=== PATIENT | female | born 1965 | race Caucasian/White ===

== ENCOUNTER 2021-04-14 17:16 | Emergency (ER) | payer OTHER, SELFPAY ==
--- NOTE | ~2021-04-14 | XR_ITS ---
XR ankle LT min 3V 04/14/2021 17:42 INDICATION: Left ankle pain after trauma PROCEDURE: 4 views left ankle COMPARISON: No prior studies for comparison. FINDINGS: Fracture, dislocation or subluxation is not identified. There are degenerative calcaneal en thesophytes. Ankle mortise intact. There is a bone island in the calcaneus. Talar dome is normal. The soft tissues appear within normal limits. No foreign bodies are identified. IMPRESSION: 1: NO ACUTE BONE OR JOINT ABNORMALITY IDENTIFIED. Reviewed, dictated and finalized at location A.
[2021-04-14 17:25] VITALS: BP 138/86; PULSE 83; RESP 17; TEMP 36.4; O2SAT 99
--- NOTE | 2021-04-14 17:27 | ED.GENADULT ---
HPI - General Adult General Chief complaint: Extremity Injury, Lower Stated complaint: Lt ankle pain Time Seen by Provider: 04/14/21 17:27 Source: patient Mode of arrival: ambulatory Limitations: no limitations Related Data Home Medications Medication Instructions Recorded Confirmed estradiol 0.5 mg PO DAILY 04/14/21 04/14/21 Allergies Allergy/AdvReac Type Severity Reaction Status Date / Time Penicillins Allergy Severe Anaphylaxis Verified 04/14/21 17:37 Sulfa (Sulfonamide Allergy Intermediate Nausea and Verified 04/14/21 17:37 Antibiotics) Vomiting Review of Systems Review of Systems: CONSTITUTIONAL: Denies fever, chills, or sweats. EYES: Denies visual changes, redness, or discharge. ENT: Denies rhinorrhea, congestion, sore throat, or otalgia. CARDIOVASCULAR: Denies chest pain, palpitations, or edema. RESPIRATORY: Denies cough or dyspnea. GASTROINTESTINAL: Denies abdominal pain, nausea, vomiting, or diarrhea. GENITOURINARY: Denies dysuria or hematuria. SKIN: Denies rash or itching. MUSCULOSKELETAL: Denies back pain, joint pain, or myalgia. NEUROLOGIC: Denies headache, numbness, or weakness. PSYCHIATRIC: Denies anxiety or depression. [facility] Past Medical History Medical History (Updated 04/14/21 @ 18:23 by ANAND Preston) Heart murmur Surgical History Surgical History (Updated 04/14/21 @ 17:29 by ANAND Preston) Delivery by section H/O dilation and curettage 1997 H/O tubal ligation History of tonsillectomy Laparoscopic cyst removal Comments At the time of my signature I agree with nursing past medical history, surgical, social, and family history. There is no relevant family history pertinent to the presenting complaint. Exam Narrative: GENERAL: Well-appearing, well-nourished, and in no acute distress. HEAD: Normocephalic, atraumatic. EYES: PERRLA and EOMI. ENT: Nares clear, no rhinorrhea or epistaxis. Mucous membranes moist. NECK: Supple. No lymphadenopathy CHEST: Clear to auscultation. No respiratory distress. HEART: Regular rate and rhythm. No murmur heard. Normal peripheral pulses. ABDOMEN: Soft, nontender, nondistended, normal active bowel sounds. EXTREMITIES: Normal range of motion. No edema. SKIN: Warm, dry, no rash. NEURO: No focal deficits. Alert and oriented x3. Course Reevaluation(s) Reevaluation #1: [id number] [address] [phone] XRay ReportSigned Patient: Patti Stoner LDOB: 1965MR#: [id number]/Sex: 55 / FAcct:[id number]: EXPTROY ADM Date: 04/14/21Attending Dr: Ordering Physician: Nina Arthur APN Date of Service: 04/14/21 Procedure(s): XR ankle LT min 3V Accession Number(s): [id number] cc: UNKNOWN,DOCTOR; Nina Arthur APN~ XR ankle LT min 3V 04/14/2021 17:42 INDICATION: Left ankle pain after trauma PROCEDURE: 4 views left ankle COMPARISON: No prior studies for comparison. FINDINGS: Fracture, dislocation or subluxation is not identified. There are degenerative calcaneal enthesophytes. Ankle mortise intact. There is a bone island in the calcaneus. Talar dome is normal. The soft tissues appear within normal limits. No foreign bodies are identified. IMPRESSION: 1: NO ACUTE BONE OR JOINT ABNORMALITY IDENTIFIED. Reviewed, dictated and finalized at location A. Dictated By: Silverio Stringer MD 04/14/21 1749 Signed By: <Electronically signed by Silverio Stringer MD in OV> Date: 04/14/21 Time: 18:20 Reevaluation #2: Reevaluated patient after x-ray resulted. Notified patient that the x-ray is negative for any fracture but most likely has a sprain. We will go ahead and wrap her with an Dwaine wrap today and offered her crutches. Patient states she has a walker at home that she can use. Encourage patient to elevate it, ice to keep it wrapped and may take Tyl
== END 2021-04-14 18:27 | disposition home or self-care (01) ==
PROVIDERS: Emergency Provider Nurse Practitioner Family
DX: S93.402A Sprain of unspecified ligament of left ankle, initial encounter (principal); X50.9XXA Other and unspecified overexertion or strenuous movements or postures, initial encounter; R01.1 Cardiac murmur, unspecified
CPT/HCPCS: 73610; 99213; G0463

== ENCOUNTER 2023-11-14 08:40 | Emergency (ER) | payer OTHER, SELFPAY ==
[2023-11-14 09:07] VITALS: BP 113/73; PULSE 84; RESP 18; TEMP 36.7; O2SAT 98
[2023-11-14 09:10] VITALS: BP 113/73; PULSE 84; RESP 18; TEMP 36.7; O2SAT 98
--- NOTE | 2023-11-14 09:26 | ED.URI ---
HPI - URI/Sore Throat General Chief Complaint: Upper Respiratory Infection Stated Complaint: bilateral ear pain,sorethroat Source: patient Mode of arrival: ambulatory Limitations: no limitations History of Present Illness HPI Narrative: 58-year-old female presents to [facility] with complaints of bilateral ear pain and pressure, sore throat, dry cough, congestion and runny nose for the past 3 days. Patient denies shortness of breath, wheezing, nausea, vomiting, diarrhea or fevers. Patient reports that her grandchildren were recently ill. Patient has been taking [id number] Sudafed and Tylenol. patient is a nonsmoker. MD elicited complaint: sore throat, rhinorrhea, nasal congestion and other (Bilateral ear pain) Onset (ago): day(s) (3) Consistency: constant Able to tolerate fluids by mouth: Yes Exacerbating factors: swallowing Context: sick contacts (Grand children) Treatments prior to arrival: acetaminophen and cold medicine Related Data Home Medications Medication Instructions Recorded Confirmed diazepam 10 mg tablet mg 11/14/23 Allergies Allergy/AdvReac Type Severity Reaction Status Date / Time Penicillins Allergy Severe Anaphylaxis Verified 11/14/23 09:10 Sulfa (Sulfonamide AdvReac Intermediate Nausea and Verified 11/14/23 09:10 Antibiotics) Vomiting Review of Systems Constitutional: Constitutional: Denies chills, Denies fatigue, Denies fever(s) and Denies weakness ENT: Denies vertigo, Denies dizziness, Denies epistaxis, Reports nasal congestion and Reports sore throat Comments: bilateral ear pressure Cardiovascular: Cardiovascular: Denies chest pain, Denies rapid heart rate, Denies radiating jaw, neck or arm pain and Denies slow heart rate Respiratory: Respiratory: Reports cough, Denies dyspnea and Denies wheezing Gastrointestinal: Gastrointestinal: Denies diarrhea, Denies nausea and Denies vomiting Integumentary/Breasts: Skin/Breast: Denies rash Neurologic: Denies vertigo, Denies dizziness, Denies syncope and Denies headache(s) [facility] Past Medical History Medical History Heart murmur Surgical History Surgical History Delivery by section H/O dilation and curettage 1997 H/O tubal ligation History of tonsillectomy Laparoscopic cyst removal Comments At time of signature, I agree with nursing past medical, surgical, social and family history. There is no relevant family history pertinent to the presenting complaint. Exam Const: General: healthy appearing and no acute distress Nutritional Appearance: well nourished Orientation/consciousness: patient oriented x3 Limitations: no limitations HENMT: Head: normal to inspection Ears: external ears normal, EAC's normal and TM abnormal wth effusion serous bilateral; not erythematous Mouth: Yes Normal oral and palatal mucosa present and Yes moist mucous membranes Teeth and gingiva: dentition normal Throat: posterior oropharynx normal and uvula midline Other: Mild clear postnasal drainage noted Neck: Neck: normal visual inspection Resp: Effort & Inspection: normal respiratory effort and not labored Auscultation: clear to auscultation bilaterally, no crackles, no rales, no rhonchi and no wheezes Cardio: Rate: regular rate Rhythm: regular rhythm Heart sounds: no murmurs Skin: General skin exam: normal color Rashes: no rashes Neuro: General: patient oriented x3 Speech: normal speech Psych: Affect: normal affect Attitude: cooperative Course Course Level of Care: Express Care Visit Vital Signs Vital signs: Vital Signs Temperature 36.7 C 11/14/23 09:07 Pulse Rate 84 11/14/23 09:07 Respiratory Rate 18 11/14/23 09:07 Blood Pressure 113/73 11/14/23 09:07 Pulse Oximetry 98 11/14/23 09:07 Oxygen Delivery Room Air 11/14/23 09:07 Temperature 36.7 C 11/14/23 09:10 Pulse Ra
== END 2023-11-14 09:40 | disposition home or self-care (01) ==
PROVIDERS: Emergency Provider Nurse Practitioner Family
DX: B34.9 Viral infection, unspecified (principal); R01.1 Cardiac murmur, unspecified
CPT/HCPCS: 99213; G0463

== ENCOUNTER 2024-04-03 11:26 | Emergency (ER) | payer OTHER, SELFPAY ==
--- NOTE | 2024-04-03 11:30 | ED.URI ---
HPI - URI/Sore Throat General Chief Complaint: Upper Respiratory Infection Stated Complaint: SORE THROAT/FEVER Time Seen by Provider: 04/03/24 11:30 Source: patient Mode of arrival: ambulatory Limitations: no limitations History of Present Illness HPI Narrative: Patti is a 58-year-old female patient presenting to the clinic today with complaints of sore throat, cough, and fever x1 day. She reports highest fever was 101. No known sick contacts. Denies any chest pain or shortness of breath. MD elicited complaint: fever, cough and sore throat Related Data Home Medications Medication Instructions Recorded Confirmed diazepam 10 mg tablet mg 11/14/23 multivit with minerals-iron 18 tablet PO 04/03/24 mg-folic ac 400 mcg-vit K 25 mcg tablet (Adults Multivitamin) Allergies Allergy/AdvReac Type Severity Reaction Status Date / Time Penicillins Allergy Severe Anaphylaxis Verified 04/03/24 11:42 Sulfa (Sulfonamide AdvReac Intermediate Nausea and Verified 04/03/24 11:42 Antibiotics) Vomiting Review of Systems Review of Systems: Pertinent positives per HPI. Patient denies any fever, chills, rash, headache, visual changes, dizziness, shortness of breath, chest pain, palpitations, nausea, vomiting, diarrhea, constipation, abdominal pain, or any urinary issues. PMFSH Past Medical History Medical History Heart murmur Surgical History Surgical History Delivery by section H/O dilation and curettage 1997 H/O tubal ligation History of tonsillectomy Laparoscopic cyst removal Comments At the time of my signature, I reviewed and agree with the nursing past medical, surgical, social, and family history. There is no relevant family history pertinent to the patient complaint. Exam Narrative: General: Well-developed, well nourished, in no apparent distress Head: Normocephalic, atraumatic Eyes: Pupils equally round and reactive to light bilaterally, EOM intact, sclera and conjunctive clear, no discharge, lids normal Ears: TMs intact and clear, ear canals clear, no drainage, grossly hearing normal. Nose: Nares patent, no discharge, no inflammation, no sinus tenderness. Mouth: Oral pharynx mildly red without lesions or masses, good dentition, MMM. Neck: Supple, trachea midline, no enlargement of anterior or posterior cervical nodes, no thyroid masses or goiter palpable. Cardio: Regular rate and rhythm, s1 and s2 normal, no murmur appreciated. Resp: Clear to auscultation bilaterally, no rhonchi, rales, wheezing or rubs Course Course Emergency Course: Portions of this record may have been created with voice recognition software. Level of Care: Express Care Visit Vital Signs Vital signs: Vital Signs Temperature 37.2 C 04/03/24 11:34 Pulse Rate 107 H 04/03/24 11:34 Respiratory Rate 18 04/03/24 11:34 Blood Pressure 128/79 04/03/24 11:34 Pulse Oximetry 96 04/03/24 11:34 Oxygen Delivery Room Air 04/03/24 11:34 Temperature 37.2 C 04/03/24 11:34 Pulse Rate 107 H 04/03/24 11:34 Respiratory Rate 18 04/03/24 11:34 Blood Pressure 128/79 04/03/24 11:34 Pulse Oximetry 96 04/03/24 11:34 Oxygen Delivery Room Air 04/03/24 11:34 Vital signs reviewed MDM - URI/Sore Throat MDM Narrative Medical decision making narrative: At the time of visit patient is resting comfortably on the exam table. Patient appears to be nontoxic. Labs: COVID and strep test was obtained and negative in the clinic today. We will send strep for culture. Plan: I suspect patient has URI/pharyngitis/viral syndrome. Supportive measures were discussed with the patient and they voiced understanding discharge instructions and agrees to treatment plan. Return precautions reviewed Differential Diagnosis Differential diagnosis: Likely upper respiratory infection, otitis me
[2024-04-03 11:34] VITALS: BP 128/79; PULSE 107; RESP 18; TEMP 37.2; O2SAT 96
[2024-04-03 12:00] LABS: EDSTREPNEGPOS1 Negative
== END 2024-04-03 12:06 | disposition home or self-care (01) ==
PROVIDERS: Emergency Provider Nurse Practitioner Family
DX: B34.9 Viral infection, unspecified (principal); J06.9 Acute upper respiratory infection, unspecified; J02.9 Acute pharyngitis, unspecified; Z20.822 Contact with and (suspected) exposure to COVID-19; R01.1 Cardiac murmur, unspecified
CPT/HCPCS: 87081; 87426; 87880; 99213; G0463

== ENCOUNTER 2025-06-09 08:49 | Emergency (ER) | payer OTHER, SELFPAY ==
[2025-06-09 08:58] VITALS: BP 138/55; PULSE 115; RESP 20; TEMP 38.5; O2SAT 96
--- NOTE | 2025-06-09 09:00 | ED_ITS ---
HPI - URI/Sore Throat General Chief Complaint: Upper Respiratory Infection Stated Complaint: URI Source: patient Mode of arrival: ambulatory Limitations: no limitations History of Present Illness HPI Narrative: This 60-year-old female patient who presents emergency department with complaints of 10 days of sinus pressure, congestion, harsh cough, fever and chills. Patient has been taking Tylenol in saline nasal spray with no avail. She has not taken anything for her fever this morning. She refuses any antiemetics in The clinic. Patient reports she has been shortness of breath no nausea, vomiting, diarrhea headache dizziness. MD elicited complaint: fever, cough, rhinorrhea, nasal congestion and sinus pain Onset (ago): day(s) (10) Consistency: constant Severity: moderate Able to tolerate fluids by mouth: Yes Exacerbating factors: exertion Relieving factors: nothing Context: sick contacts and recent travel Associated symptoms: fever, chills, myalgias, headache, nasal congestion, sore throat and cough Treatments prior to arrival: other (saline spray) Related Data Home Medications ?Medication ?Instructions ?Recorded ?Confirmed ?Last Taken ?Type diazepam 10 mg tablet mg 11/14/23 Unknown History multivit with minerals-iron 18 tablet PO 04/03/24 Unk nown History mg-folic ac 400 mcg-vit K 25 mcg tablet (Adults Multivitamin) hydrochlorothiazide 12.5 mg capsule mg 06/09/25 Unkno wn History Allergies Allergy/AdvReac Type Severity Reaction Status Date / Time Penicillins Allergy Severe Anaphylaxis Verified 06/09/25 08:58 lisinopril Allergy Mild Swelling Verified 06/09/25 08:58 Sulfa (Sulfonamide AdvReac Intermediate Nausea and Verified 06/09/25 08:58 Antibiotics) Vomiting Review of Systems Review of Systems: All systems reviewed & are unremarkable except as noted in HPI and below PMFSH Past Medical History Medical History Heart murmur Surgical History Surgical History Delivery by section H/O dilation and curettage 1997 H/O tubal ligation History of tonsillectomy Laparoscopic cyst removal Exam Const: General: alert and ill appearing Nutritional Appearance: well nourished Orientation/consciousness: patient oriented x3 Limitations: no limitations HENMT: Head: normal to inspection Ears: external ears normal, TM's normal bilaterally and EAC's normal Face/Nose/Sinus: Nasal discharge present clear and mucoid Face and sinus: sinus tenderness frontal and maxillary Mouth: Yes Normal oral and palatal mucosa present Teeth and gingiva: dentition normal Throat: posterior oropharynx normal Eyes: Conjunctivae: conjunctivae normal Pupils: Equal, round and reactive pupils present EOM: EOMs intact bilaterally Neck: Neck: normal visual inspection and no lymphadenopathy Resp: Effort & Inspection: normal respiratory effort Auscultation: clear to auscultation bilaterally Other: Very harsh dry cough Cardio: Rate: tachycardic Rhythm: regular rhythm GI: GI Palp: Yes Soft to palpation Auscultation: normal bowel sounds and Hyperactive bowel sounds present Back/Spine/Pelvis: Back: no CVA tenderness Skin: General skin exam: normal color Rashes: no rashes Neuro: General: patient oriented x3 Speech: normal speech Gait exam (Neuro): Normal gait present Extrem: General: normal to inspection Psych: Mental Status: mental status grossly normal Course Course Emergency Course: 60-year-old female patient who presents emergency department with complaints of 10 days of sinus pressure, congestion, harsh cough, fever and chills. Patient has been taking Tylenol in saline nasal spray with no avail. She has not taken anything for her fever this morning. She refuses any antiemetics in The clinic. Patient reports she has been shortness of breath no nausea, vomiting, diarrhea headache dizziness. vital signs reviewed. discussed exam findings, discussed with the patient treatment options. Encouraged to continue symptomatic management including Tylenol and ibuprofen as needed for fever and discomfort. Continue with [id number] cough and cold medications. Continue with antibiotic and steroid as prescribed. Vicks Vaporub and vaporizer as needed. increase fluids, and rest Follow up with her primary care provider in the next 2-3 days for further evaluation and exam. Return to the emergency department or urgent care with any worrisome signs or symptoms. answered her questions to satisfaction she is agreeable to this plan. patient denies any further needs or concerns to be addressed prior to discharge. Level of Care: Express Care Visit Vital Signs Vital signs: Vital Signs Temperature 101.3 F H 06/09/25 08:58 Pulse Rate 115 H 06/09/25 08:58 Respiratory Rate 20 06/09/25 08:58 Blood Pressure 138/55 L 06/09/25 08:58 Pulse Oximetry 96 06/09/25 08:58 Oxygen Delivery Room Air 06/09/25 08:58 Temperature 101.3 F H 06/09/25 08:58 Pulse Rate 115 H 06/09/25 08:58 Respiratory Rate 20 06/09/25 08:58 Blood Pressure 138/55 L 06/09/25 08:58 Pulse Oximetry 96 06/09/25 08:58 Oxygen Delivery Room Air 06/09/25 08:58 MDM - URI/Sore Throat Differential Diagnosis Differential diagnosis: Likely upper respiratory infection Medical Records Attestation: I reviewed the patient's medical records. Discharge Plan Discharge Clinical Impression: Upper respiratory infection Patient Disposition: Home Condition: Stable Instructions: Antibiotic Form Additional Instructions: continue symptomatic management including Tylenol and ibuprofen as needed for fever and discomfort. Continue with [id number] cough and cold medications. Continue with antibiotic and steroid as prescribed. Vicks Vaporub and vaporizer as needed. increase fluids, and rest Follow up with her primary care provider in the next 2-3 days for further evaluation and exam. Return to the emergency department or urgent care with any worrisome signs or symptoms. Patient Language: Sammarinese Prescriptions: New azithromycin [Zithromax Z-Christo] 250 mg tablet 250 mg PO DIRECTED Qty: 6 0RF Rx Instructions: 250 mg orally; take two tablets today, then one tablet daily for 4 remaining days. prednisone 20 mg tablet 20 mg PO BID Qty: 10 0RF No Action diazepam 10 mg tablet loratadine [Claritin] 10 mg tablet 10 mg PO DAILY Qty: 30 0RF fluticasone propionate [Flonase Allergy Relief] 50 mcg/actuation spray,suspension 1 spray intranasal BID Qty: 16 0RF Rx Instructions: administer into each nostril Adults Multivitamin 18 mg iron-400 mcg-25 mcg Tablet PO hydrochlorothiazide 12.5 mg capsule Follow-up/Referrals: Jairo,Kasie Mercer MD [Primary Care Provider, [facility]] Time of Disposition: 09:13 Quality NIHSS Nursing Documentation ED NIHSS nursing documentation: reviewed/agree
--- OUTSIDE RECORDS SUMMARY | 2025-06-09 09:18 | XMS_ITS | Encounter Summary ---
Author Organization [facility] Address [address] [place] [address] Care Team Providers Care Browning Processor Name Role Phone Jodi Infante MD Unavailable [phone] Kasie Gill MD Primary Care Provider [phone] Kasie Gill MD Unavailable [phone] Encounter Details Date Type Department Care Team (Late st Contact Info) Description 05/29/2025 Results Follow-Up [facility] - Family Medicine [address] [place] [phone] Kasie Gill MD [address] [place] [phone] Social History Tobacco Use Types Packs/Day Years Used Date Smoking Tobacco: Former Cigarettes 1 15 1 09/21/1981 - 07/21/1997 Smokeless Tobacco: Never Alcohol Use Standard Drinks/Week Comments Yes 0 (1 standard drink = 0.6 oz pur e alcohol) occ AUDIT-C Answer Date Recorded Q1: How often do you have a drink containing alc ohol? Monthly or less 08/15/2024 Q2: How many drinks containi ng alcohol do you have on a typical day when you are drinking? 1 or 2 08/15/2024 Q3: How often do you have si x or more drinks on one occasion? Never 08/15/2024 Overall Financial Resource Strain (CARDIA) Answe r Date Recorded How hard is it for you to pa y for the very basics like food, housing, medical care, and heating? Not hard at all 08/15/2024 PHQ-2 Answer Date Recorded Patient Health Questionnaire-2 Score 0 02/15/2025 [facility] Occup[facility] - Occupational Stress Questionnaire Answer Date Recorded Do you feel stress - tense, restless, nervous, or anxious, or unable to sleep at night because your mind is troubled all the time - these days? Not at all 08/15/2024 Hunger Vital Sign Answer Date Recorded Within the past 12 months, y ou worried that your food would run out before you got the money to buy more. Never true 08/15/19 25 Within the past 12 months, t he food you bought just didn't last and you didn't have money to get more. Never true 08/15/2024 PRAPARE - Transportation Answer Date Re corded In the past 12 months, has l ack of transportation kept you from medical appointments or from getting medications? No 08/03 In the past 12 months, has l ack of transportation kept you from meetings, work, or from getting things needed for daily living? No 08/15/2024 Housing Stability Vital Sign Answer Casey e Recorded In the last 12 months, was t here a time when you were not able to pay the mortgage or rent on time? No 04/01/2023 Number of Places Lived in the Last Year Not on f ile 04/01/2023 In the last 12 months, was t here a time when you did not have a steady place to sleep or slept in a senior living (including now)? No 04/01/2023 Housing Stability Vital Sign Answer Casey e Recorded In the last 12 months, was t here a time when you were not able to pay the mortgage or rent on time? No 08/15/2024 In the past 12 months, how m any times have you moved where you were living? 0 08/15/2024 At any time in the past 12 m [facility], were you homeless or living in a senior living (including now)? 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 Answer Date of Assessment Author No 08/15/2024 11:14 AM Linda Cruz RN * Is person blind or have serious difficulty seeing? Answer Date of Assessment Author No 08/15/2024 11:14 AM Linda Cruz RN * Does person have serious difficulty walking/climbing stairs? Answer Date of Assessment Author No 08/15/2024 11:14 AM Linda Cruz RN * Does person have difficulty dressing/bathing? Answer Date of Assessment Author No 08/15/2024 11:14 AM Linda Cruz RN * Does person have difficulty doing errands alone? Answer Date of Assessment Author No 08/15/2024 11:14 AM Linda Cruz RN documented as of this encounter Mental Status * Does person have difficulty concentrating/remembering/making decisions? Answer Entry Date Author No 08/15/2024 11:14 AM Linda Cruz RN documented in this encounter Plan of Treatment Upcoming Encounters Date Type Department Care Team (Late st Contact Info) Description 08/22/2025 8:30 AM COSMETOLOGIST Office Visit [facility] - Family Medicine [address] [phone] Kasie Gill MD [address] [phone] 05/24/2026 10:00 AM CDT Ancillary Procedure [facility] [address] [phone] documented as of this encounter Visit Diagnoses Not on filedocumented in this encounter Care Teams Browning Processor Relationship Specialty Start Date End Date Kasie Gill MD [address] [phone] PCP - General Family Medicine 09/13/24 Kasie Gill MD [address] [phone] PCP - Attributed-[facility] 01/01/25 Jodi Infante MD [address] [phone] Obstetrics and Gynecology 09/24/16 documented as of this encounter
--- OUTSIDE RECORDS SUMMARY | 2025-06-09 09:19 | XMS_ITS | Encounter Summary ---
Author Organization [facility] Address [address] [place] [place] [address] Care Team Providers Care Mechanical Pencils Assembler Name Role Phone Jodi Infante MD Unavailable [phone] Antonia Villegas MD Primary Care Provider [phone] Antonia Villegas MD Unavailable Hanny Long [facility] Unavailable [phone] Charmaine Leung [facility] Unavailable [phone] Charo Hand Unavailable Pcp, [facility] Primary Care Provider Unavailable Hanny Long [facility] Unavailable [phone] Kasie Gill MD Primary Care Provider + [phone] Kasie Gill MD Unavailable [phone] Reason for Visit * Reason Onset Date Comments MEDICATION REFILL 02/21/2022 Encounter Details Date Type Department Care Team (Late st Contact Info) Description 02/21/2022 Refill [facility] [address] [place] [address] Jodi Infante MD [address] [place] [address] MEDICATION REFILL Social History Tobacco Use Types Packs/Day Years Used Date Smoking Tobacco: Former Cigarettes 1 15 1 09/21/1981 - 07/21/1997 Smokeless Tobacco: Never Alcohol Use Standard Drinks/Week Comments Yes 0 (1 standard drink = 0.6 oz pur e alcohol) occ PHQ-2 Answer Date Recorded PHQ2 TOTAL SCORE 0 01/28/2021 Comments No Sex and Gender Information Value Date Recorded Sex Assigned at Female 01/25/2021 8:07 AM CDT Legal Sex Female 10:35 AM SERVER ENGINEER Gender Identity Female 01/25/2021 8:07 AM CDT Sexual Orientation Straight 01/25/2021 8: 07 AM CDT 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 Answer Date of Assessment Author No 09/18/2016 10:07 AM Geraldine Trotter RN * Is person blind or have serious difficulty seeing? Answer Date of Assessment Author No 09/18/2016 10:07 AM Geraldine Trotter RN * Does person have serious difficulty walking/climbing stairs? Answer Date of Assessment Author No 09/18/2016 10:07 AM Geraldine Trotter RN * Does person have difficulty dressing/bathing? Answer Date of Assessment Author No 09/18/2016 10:07 AM Geraldine Trotter RN * Does person have difficulty doing errands alone? Answer Date of Assessment Author No 09/18/2016 10:07 AM Geraldine Trotter RN documented as of this encounter Mental Status * Does person have difficulty concentrating/remembering/making decisions? Answer Entry Date Author No 09/18/2016 10:07 AM Geraldine Trotter RN documented in this encounter Miscellaneous Notes * Telephone Encounter - Mitchell Hogue RN - 02/21/2022 4:33 PM CDT Refill Request Approved Patti Stoner BRENDA:12/15/2019 NOV due: 1 year JUN scheduled: 04/14/2022 LRF:12/24/2021 Qty Disp: 90 # of refills:0 Allergies: Allergies Allergen Reactions ??? Pcn [Penicillins] Anaphylaxis As child ??? Sulfa Drugs Nausea and/or Vomiting Other reaction(s): Nausea Pended Medication Order: Requested Prescriptions Signed Prescriptions Disp Refills ??? estradiol (ESTRACE) 0.5 MG tablet 180 tablet 0 Sig: Take 2 (two) tablets by mouth once daily Authorizing Provider: JODI INFANTE Ordering User: MITCHELL HOGUE documented in this encounter Plan of Treatment Upcoming Encounters Date Type Department Care Team (Late st Contact Info) Description 08/22/2025 8:30 AM SERVER ENGINEER Office Visit [facility] - Family Medicine [address] [phone] Kasie Gill MD [address] [phone] 05/24/2026 10:00 AM CDT Ancillary Procedure [facility] Breast [facility] [address] [phone] documented as of this encounter Visit Diagnoses Diagnosis Hormone replacement therapy documented in this encounter Care Teams Mechanical Pencils Assembler Relationship Specialty Start Date End Date Antonia Villegas MD [address] [facility] [address] [place] [address] PCP - General 02/14/19 06/01/24 Antonia Villegas MD [address] [facility] [address] [place] [address] PCP - Attributed-[facility] 02/01/20 12/01/23 Charmaine Leung, LENS AND FRAMES PRESCRIPTION CLERK-TUBE WRAPPER [address] [facility] [address] [place] [address] PCP - [facility] 12/02/23 12/31/24 Pcp, [facility] PCP - General 06/02/24 09/12/24 Kasie Gill MD [address] [address] PCP - General Family Medicine 09/13/24 Kasie Gill MD [address] [address] PCP - Attributed-[facility] 01/01/25 Jodi Infante MD [address] [address] Obstetrics and Gynecology 09/24/16 Hanny Long LMS[facility] Care Management 04/07/2304/04 Charo Hand [facility] [address] [place] [address] Care Coordination Specialist Care Management 03/17/24 03/17/24 Hanny Long LMSW Loop Sewer Care Management 08/17/24 08/17/24 documented as of this encounter
--- OUTSIDE RECORDS SUMMARY | 2025-06-09 09:19 | XMS_ITS | Clinical Summary ---
Author Organization [facility] Address [address] [place] [address] Care Team Providers Care Prehemmer Name Role Phone Jodi Infante MD Unavailable [phone] Kasie Gill MD Primary Care Provider [phone] Kasie Gill MD Unavailable [phone] Source Comments [facility] [employer],non-owned Affiliates and Associated Physician Practices is amultiple site organization consisting of ambulatory clinics and hospital sitesin [place], [place], [place] and [place]. This disclosure is being madepursuant to the Care Everywhere program and may not contain all information available regarding this patient. Last updated 18.[facility] [employer] Allergies Active Allergy Reactions Criticality Noted Date Comments Penicillins Anaphylaxis High 09/04/2016 As child Sulfa Drugs Nausea and/or Vomiting Low 06/19/2004 Other reaction(s): Nausea Medications * Be aware that medications may not be up to date on this document. Alwaysverify current medications with the patient. Multiple Vitamin 1 (one) tablet once daily 7 Active acetaminophen (Tylenol) 325 MG tablet Take 2 (two) tablets by mouth every 4 hours as needed Maximum allowable Acetaminophen amount = 4 Grams (4000 mg) / 24 hours. 3 Active diazePAM (Valium) 10 MG tablet Take 1 (one) tablet by mouth at bedtime 30 tablet 2 5 Active hydroCHLOROthia zide (Microzide) 12.5 MG capsuleIndicati ons:Hypertensio n, unspecified type Take 1 (one) capsule by mouth once daily 90 capsule 4 5 Active fish oil/omega-3 fatty acids (Promega;Cardi- Estill 3) 1000 MG capsule Take 1 (one) capsule by mouth 3 times daily with meals Active vitamin D3 (Cholecalcifero l) 25 MCG (1000 UNITS) tablet Take 5 (five) tablets by mouth every 2 days Active azelastine (Astelin) 0.1 % nasal sprayIndication s:Benign paroxysmal positional vertigo, unspecified laterality,Recu rrent subacute allergic otitis media of right ear [place] 1 (one) spray into each nostril 2 times daily 90 mL 4 5 Active ondansetron, disintegrating, (Zofran ODT) 4 MG tabletIndicatio ns:Benign paroxysmal positional vertigo, unspecified laterality Take 1 (one) tablet by mouth every 8 hours as needed for Nausea/Vomiting Allow tablet to dissolve on the tongue 12 tablet 5 Active Active Problems Problem Noted Date Diagnosed Date Diverticulitis 08/15/2024 Sepsis, due to unspecified o rganism, unspecified whether acute organ dysfunction present 08/15/2024 Chest pain, unspecified type 08/15/2024 Prediabetes 08/15/2024 Chronic back pain 08/15/2024 Resolved Problems Problem Noted Date Diagnosed Date Resolved Date Abdominal pain, right lower quadrant 04/01/2023 04/03/2023 Well woman exam with routine gynecological exam 04/14/2022 07/13/2023 Assessment & Plan (04/14/2022 2:44 PM CDT): Pap smear no longer indicated given benign hysterectomy. Mammogram due at the end of the month Hormone replacement therapy refilled for the next year. She has been working on tapering down slowly and is currently only using 0.5 mg daily. Hormone replacement therapy 01/28/2021 07/13/2023 Physical exam, annual 09/24/20162017 Lipid screening 09/24/2016 01/28/2021 Overview (10/08/2018): 07/2016: 1.2 % 10 yr ascvd risk 09/2017: 1.2 % 10 yr ascvd risk 10/2018: 1.7 % 10 yr ascvd risk Intramural leiomyoma of uterus 08/13/2016 07/13/2023 Encounters Date Type Department Care Team Description 05/29/2025 Results Follow-Up [facility] - Family Medicine [address], [address] [place] [address] Kasie Gill MD 05/24/2025 11:30 AM CDT Ancillary Procedure [facility] [address] [place] [address] Kasie Gill MD Encounter for screening mammogram for malignant neoplasm of breast from Last 3 Months Immunizations Immunization Administration Dates Next Due INFLUENZA VACCINE, TRIV. (AF LURIA, FLUZONE TRIVALENT; 6MO+) (IIV3) 05/09/2013,05/03/2011,05/03/2010 COVID PFIZER BIVALENT 12Y+ 30mcg/0.3ML 06/25/2022 Comirnaty Covd-19 Mrna Vacci ne (Nucleoside Modified) 05/19/2023 Covid Pfizer primary monoval ent 12+ yr 0.3mL Purple cap 05/23/2024,05/09/2021,09/10/2020,2020 INFLUENZA VACCINE 06/09/2024, 9,04/16/2018,2016,05/03/2016,05/09/2013,05/03/2011,1 INFLUENZA VACCINE, CELL CULT URE, QUADR. (FLUCELVAX QUADRIVALENT; 6MO+) (CCIIV4) 05/19/2023,06/02/2022,05/27/2020,2019 TDAP (7yrs+) 06/25/2022,12/14/2008,11/02/2007 Zoster Hzv Vacc Recombinant Inj Im 06/20/2024, Family History Medical History Relation Name Comments Cancer - Skin, Melanoma Brother Chidi Zamudio Sarah CVA Father Gilles Smith Jr 12/2017 Diabetes Father Gilles Smith Jr Heart Disease Father Gilles Smith Jr CAD s/ p CABG Hypercholesterolemia Father Gliles Smith Jr Hypertension Father Gilles Smith Jr Dementia Maternal Grandmother Samanta Frost Cancer - Breast Other Mima Block Cancer - Breast Paternal Aunt Carolin Funk Chronic Lung Disease Paternal Grandfather Gilles Palomino Ta lbert SR Diabetes Paternal Grandfather Gilles Smith SR Heart Disease Paternal Grandfather Gilles Smith S R Hypercholesterolemia Paternal Grandfather Gilles Palomino Ta lbert SR Hypertension Paternal Grandfather Gilles Smith SR Cancer - Ovarian Paternal Grandmother Sirena Taylor Talber t young Cancer - Uterine Paternal Grandmother Sirena Dearborn Talber t young Schizophrenia Sister Josephine Alanis Sarah Relation Name Status Comments Brother Chidi Smith Alive Father Gilles Smith Jr Alive Maternal Grandmother Samanta Frsot Alive Mother Alive Other Mima Block Alive Paternal Aunt Carolin Funk Paternal Grandfather Gilles Smith SR (Ag e 67) Paternal Grandmother Sirena Smith Sister Josephine Smith Alive Social History Tobacco Use Types Packs/Day Years Used Date Smoking Tobacco: Former Cigarettes 1 15 1 09/21/1981 - 07/21/1997 Smokeless Tobacco: Never Tobacco Cessation:Counseling Given: Not Answered Alcohol Use Standard Drinks/Week Comments Yes 0 [...] Recorded Patient Health Questionnaire-2 Score 0 02/15/2025 [facility] [place] of Occupat ional Health - Occupational Stress [...] place to sleep or slept in a jail (including now)? No 04/01/2023 Housing Stability Vital Sign Answer Casey e Recorded In the last 12 months, was t here a time when you were not able to pay the mortgage or rent on time? No 08/15/2024 In the past 12 months, how m any times have you moved where you were living? 0 08/15/2024 At any time in the past 12 m [facility], were you homeless or living in a jail (including now)? 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 Not on file Not on f ile Last Filed Vital Signs Vital Sign Reading Time Taken Comments Blood Pressure 124/80 02/15/2025 8:32 AM CDT Pulse 74 02/15/2025 8:32 AM CDT Temperature 36.3 C (97.3 F) 10/20/2024 8:19 AM CDT Respiratory Rate 18 09/13/2024 9:32 AM MEDICAL ATTENDANT Oxygen Saturation 97% 02/15/2025 8:32 AM CDT Inhaled Oxygen Concentration - - Weight 89.3 kg (196 lb 12.8 oz) 05/24/2025 9:52 AM CDT Height 160 cm (5' 3) 05/24/2025 9:52 AM CDT Body Mass Index 34.86 05/24/2025 9:52 AM CDT Plan of Treatment Upcoming Encounters Date Type Department Care Team (Late st Contact Info) Description 08/22/2025 8:30 AM MEDICAL ATTENDANT Office Visit [facility] - Family Medicine [address] [address] Kasie Gill MD [address] [address] 05/24/2026 10:00 AM CDT Ancillary Procedure [facility] [address] [address] Health Maintenance Due Date Last Done Comments COLON MONITORING 1965 COLONOSCOPY - COLON CA SCREENING 1965 CT COLONOGRAPHY - COLON CA SCREENING 1965 FLEX SIG - COLON CA SCREENING 1965 PNEUMOCOCCAL VACCINE 50+ (1 of 1 - PCV) 2015 FIT - COLON CA SCREENING 11/25/2019 11/24/2018, 09/04 COVID-19 VACCINE ( season) 2025 05/23/2024, 05/19/2023, 06/25/2022, Additional history exists INFLUENZA VACCINE (#1) 2025 , 05/19/2023, 06/02/2022, Additional history exists LIPID TESTING 08/16/2025 08/16/2024, 08/03, 05/15/2022, Additional history exists HIV SCREENING 09/13/2025 Postponed from 1980 (Patient Directed) COLOGUARD (AGES 45-75) - COLON CA SCREENING 03/27/2027 03/27/2024, 03/27/2024, 03/06/2021, Additional history exists Colorectal Cancer Screening 03/27/2027 MAMMOGRAM 05/24/2027 05/24/2025, 03/2024, 05/14/2022, Additional history exists SCREENING FOR DIABETES 02/16/2028 , 08/16/2024, 08/15/2024, Additional history exists DTAP/TDAP/TD VACCINES (4 - Td or Tdap) 06/25/2032 06/25/2022, 12/14/2008, 11/02/2007 Respiratory Syncytial Virus (RSV) Vaccine Pt: or over 60 yrs (1 - 1-dose 75+ series) 2040 HEPATITIS C SCREENING Completed 10/06/2018 ZOSTER VACCINE Completed 06/20/2024, 02/15/2024 DEPRESSION SCREENING Completed 08/14/2024, 11/09/2023, 04/22/2023, Additional history exists HEPATITIS B VACCINE Discontinued HIB VACCINE Aged Out No longer eligi ble based on patient's age to complete this topic HPV VACCINE Aged Out No longer eligi ble based on patient's age to complete this topic MENINGOCOCCAL (Group B) VACCINE SHARED DECISION-MAKING Aged Out No longer eligible based on patient's age to complete this topic MENINGOCOCCAL GROUPS A/C/Y/W VACCINE Aged Out No longer eligible based on patient's age to complete this topic Procedures Procedure Name Priority Date/Time Associated Diagnosis Comments MAMMO BILAT SCREENING W BOWEN Routine 05/24/2025 10:00 AM CDT Encounter for screening mammogram for malignant neoplasm of breast BASIC METABOLIC PANEL (CALCIUM TOTAL) Routine 02/15/2025 10:01 AM CDT Primary hypertension LIPID PROFILE AM Draw 08/16/2024 6:27 AM MEDICAL ATTENDANT COLOGUARD TEST Routine 03/27/2024 7:30 PM CDT Screening for colorectal cancer OCCULT BLOOD FECES FIT IMMUNOASSAY 11/24/2018 12:00 AM CDT HEPATITIS C ANTIBODY Routine 10/06/2018 3:32 PM MEDICAL ATTENDANT Need for hepatitis C screening test from Last 3 Months or Most Recently Relevant to Health Maintenance Results * Mammo Bilat Screening W Bowen (05/24/2025 10:00 AM CDT) Anatomical Region Laterality Modality Breast Bilateral Mammography 05/27/2025 10:4 5 AM CDT Impressions 05/27/2025 10:45 AM CDT IMPRESSION: There is no mammographic evidence of malignancy. RECOMMENDATION: Annual screening mammography is recommended. OVERALL ASSESSMENT: BI-RADS Category 1. Negative. > Interpreting Provider: Yaya Draper MD on 05/27/2025 10:45 AM Narrative 05/27/2025 10:45 AM CDT EXAMINATION: DIGITAL MAMMO BILAT SCREENING W BOWEN DATE: 05/24/2025 HISTORY: Screening. CALCULATED LIFETIME RISK OF BREAST CANCER: 9% COMPARISON: Prior breast imaging dating back to 2016 TECHNIQUE: Bilateral synthetic 2-D (C-view) digital mammogram images and bilateral digital breast tomosynthesis were obtained in the craniocaudal and mediolateral oblique projections. Computer-aided detection (CAD) was utilized. BREAST PARENCHYMAL DENSITY: Density Category B: There are scattered areas of fibroglandular density FINDINGS: There are no suspicious masses, suspicious calcifications, or areas of unexplained architectural distortion. us Kasie Gill MD MAMMO ORDERABLES Final Res ult * (ABNORMAL) BASIC METABOLIC PANEL (CALCIUM TOTAL) (02/15/2025 10:01 AM CDT) Glucose 93 65 - 99 mg/dL [facility] Comment: Fasting reference interval BUN 21 7 - 25 mg/dL [facility] Creatinine 0.65 0.50 - 1.03 mg/dL [facility] eGFR by Cystatin C 101 > OR = 60 mL/min/1. 73m2 [facility] BUN/Creatinine Ratio SEE NOTE: 6 - 22 (calc) [facility] Comment: Not Reported: BUN and Creatinine are within reference range. Sodium 133(L) 135 - 146 mmol/L [facility] Potassium 4.4 3.5 - 5.3 mmol/L [facility] Chloride 99 98 - 110 mmol/L [facility] CO2 25 20 - 32 mmol/L [facility] Calcium 9.2 8.6 - 10.4 mg/dL [facility] Comment: Test Performed at: [facility] [place] [id number] [facility] [place] [phone] JENNIFER COLON MD Blood BLOOD SPECIMEN / Unknown 02/15/2025 10:01 AM CDT 02/15/2025 10:02 AM CDT Kasie Gill MD LAB - CHEMISTRY ORDERABLES Final Result Performing Organization Address City/[facility]/ZIP Co de Phone Number [facility] [address] [place] [address] * LIPID PROFILE (08/16/2024 6:27 AM MEDICAL ATTENDANT) Cholesterol 175 <200 mg/dL 08/16/2024 7:15 AM MEDICAL ATTENDANT [facility] Triglycerides 107 <150 mg/dL 08/16/2024 7:15 AM MEDICAL ATTENDANT [facility] HDL Cholesterol 46 >40 mg/dL 5 7:15 AM MEDICAL ATTENDANT [facility] LDL Calculated 108 <130 mg/dL 08/16/2024 7:15 AM [facility] VLDL Calculated 21 <=30 mg/dL 5 7:15 AM [facility] Chol HDL Ratio 3.8 <4.5 08/16/2024 7:15 AM MEDICAL ATTENDANT [facility] LDL/HDL Ratio 2.3 <5.0 08/16/2024 7:15 AM [facility] Blood BLOOD SPECIMEN / Unknown Lab Venipuncture / Unknown 08/16/2024 6:27 AM MEDICAL ATTENDANT 08/16/2024 6:38 AM MEDICAL ATTENDANT us Vinh Peña MD LAB - CHEMISTRY ORDERABLES Final Result [facility] [address] [place] [address] * COLOGUARD TEST (03/27/2024 7:30 PM CDT) Cologuard Negative Negative [facility] Comment: NEGATIVE TEST RESULT. A negative Cologuard result indicates a low likelihood that a colorectal cancer (CRC) or advanced adenoma (adenomatous polyps with more advanced pre-malignant features) is present. The chance that a person with a negative Cologuard test has a colorectal cancer is less than 1 in 1500 (negative predictive value >99.9%) or has an advanced adenoma is less than 5.3% (negative predictive value 94.7%). These data are based on a prospective cross-sectional study of 10,000 individuals at average risk for colorectal cancer who were screened with both Cologuard and colonoscopy. (Millie Adari al, N Engl J Med 2014;370(14):9284-1564) The normal value (reference range) for this assay is negative. COLOGUARD RE-SCREENING RECOMMENDATION: Periodic colorectal cancer screening is an important part of preventive healthcare for asymptomatic individuals at average risk for colorectal cancer. Following a negative Cologuard result, the [place] [employer] Society and U.S. Multi-Society Task Force screening guidelines recommend a Cologuard re-screening interval of 3 years. References: [place] [employer] Guideline for Colorectal Cancer Screening: https://www.cancer.org/cancer/wbkcl-cbqshn-zidhon/gdsavluow-pgqettskz-whzajfq/ acs-recommendations.html.; Cecilio DK, Sesar MICHELE, Valentina GonsalvesK, Colorectal Cancer Screening: Recommendations for Physicians and Patients from the U.S. Multi-Society Task Force on Colorectal Cancer Screening , Am J Gastroenterology 2017; 112:0117-3890. TEST DESCRIPTION: Composite algorithmic analysis of stool DNA-biomarkers with hemoglobin immunoassay. Quantitative values of individual biomarkers are not reportable and are not associated with individual biomarker result reference ranges. Cologuard is intended for colorectal cancer screening of adults of either sex, 45 years or older, who are at average-risk for colorectal cancer (CRC). Cologuard has been approved for use by the U.S. FDA. The performance of Cologuard was established in a cross sectional study of average-risk adults aged 50-84. Cologuard performance in patients ages 45 to 49 years was estimated by sub-group analysis of near-age groups. Colonoscopies performed for a positive result may find as the most clinically significant lesion: colorectal cancer [4.0%', advanced adenoma (including sessile serrated polyps greater than or equal to 1cm diameter) [20%' or non- advanced adenoma [31%'; or no colorectal neoplasia [45%'. These estimates are derived from a prospective cross-sectional screening study of 10,000 individuals at average risk for colorectal cancer who were screened with both Cologuard and colonoscopy. (Millie Adair al, N Engl J Med 2014;370(14):3155-4563.) Cologuard may produce a false negative or false positive result (no colorectal cancer or precancerous polyp present at colonoscopy follow up). A negative Cologuard test result does not guarantee the absence of CRC or advanced adenoma (pre-cancer). The current Cologuard screening interval is every 3 years. ([place] [employer] Society and U.S. Multi-Society Task Force). Cologuard performance data in a 10,000 patient pivotal study using colonoscopy as the reference method can be accessed at the following location: www.[employer]/results. Additional description of the Cologuard test process, warnings and precautions can be found at www.[employer].Blued. Stool STOOL SPECIMEN / Unknown 03/27/2024 7:30 PM CDT 03/29/2024 10:48 AM CDT Antonia Villegas MD LAB - CHEMISTRY ORDERABLES Final Result [facility] [address] [place] [address] [facility] [address] [place] [address]. [place] [address] * OCCULT BLOOD FECES 1-3 IMMUNOASSAY (11/24/2018 12:00 AM CDT) Occult Blood Immunoassay Negative Negative [facility] INSURANCE BILL 11/24/2018 11/24/2018 Narrative Resulting Agency Comment Lab Testing performed at: [facility] [address] [facility] [phone] Dipti Burger MD LAB - BODY FLUID ORDERABLES Final Result Performing Organization Address City/[facility]/ZIP Co de Phone Number [facility] INSURANCE BILL [address] [place] [address] * HEPATITIS C ANTIBODY (10/06/2018 3:32 PM MEDICAL ATTENDANT) Hepatitis C Antibody Non Reactive Non Reactive [facility] INSURANCE BILL Comment: Non Reactive - Antibodies to Hepatitis C virus (HCV) were no t detected, result does not exclude early acute HCV infection. Blood BLOOD SPECIMEN / Unknown 10/06/2018 3:32 PM MEDICAL ATTENDANT 10/06/2018 Narrative Resulting Agency Comment [facility] [address] [facility] [phone] Dipti Burger MD LAB - CHEMISTRY ORDERABLES F inal Result [facility] INSURANCE BILL [address] [place] [address] from Last 3 Months or Most Recently Relevant to Health Maintenance Insurance [facility] Advance Directives * Full Code (Latest Code Status on File) Date Activated Date Inactivated Comments 08/15/2024 11:22 AM 08/16/2024 12:56 PM * Full Code Date Activated Date Inactivated Comments 04/01/2023 11:21 AM 04/03/2023 11:44 AM * Full Code Date Activated Date Inactivated Comments 09/17/2016 7:42 PM 09/18/2016 11:03 AM Care Teams Prehemmer Relationship Specialty Start Date End Date Kasie Gill MD [address] [address] PCP - General Family Medicine 09/13/24 Kasie Gill MD [address] [phone] PCP - Attributed-[facility] 01/01/25 Jodi Infante MD [address] [phone] Obstetrics and Gynecology 09/24/16
== END 2025-06-09 09:18 | disposition home or self-care (01) ==
PROVIDERS: Emergency Provider Nurse Practitioner Family; PCP Family Medicine
DX: J06.9 Acute upper respiratory infection, unspecified (principal); R01.1 Cardiac murmur, unspecified
CPT/HCPCS: 99213; G0463